=== PATIENT | female | born 1965 | race Hispanic/Latino ===

== ENCOUNTER 2018-03-16 09:55 | Observation (INO) | payer BC, OTHER ==
[2018-03-16 09:56] VITALS: BMI 42.0
--- NOTE | 2018-03-16 10:37 | C.PDOC ---
History Of Present Illness 52 year old female presents to the ED with chest pain tightness and heartburn for 2 days. Chest pain was non radiating, and she denies any history of DVT, or Pulmonary Embolism. She reports relief after taking Nexium. Patient is status post bariatric surgery in September. Time Seen by Provider: 03/16/18 09:56 Chief Complaint (Nursing): Chest Pain History Per: Patient History/Exam Limitations: no limitations Onset/Duration Of Symptoms: Days Current Symptoms Are (Timing): Still Present Past Medical History Reviewed: Historical Data, Nursing Documentation, Vital Signs Vital Signs: Last Vital Signs Temp 98.0 F 03/16/18 09:58 Pulse 74 03/16/18 09:58 Resp 16 03/16/18 09:58 BP 138/85 03/16/18 09:58 Pulse Ox 100 03/16/18 12:25 - Medical History PMH: Asthma, Bronchitis, Hypothyroidism Denies: Depression, Chronic Kidney Disease Surgical History: Tonsillectomy - [facility] Procedures BILAT ENDOS OCC TUBE NEC (09/27/04) INJECT/INFUSE ELECTROLYT (08/13/15) INJECT/INFUSE NEC (08/13/15) LAPAROSCOP LYSIS-PERITONEAL ADHES (09/27/04) NEBULIZER THERAPY (03/09/06) Family History: States: No Known Family Hx - Social History Hx Tobacco Use: No Hx Alcohol Use: Yes Hx Substance Use: No - Immunization History Hx Tetanus Toxoid Vaccination: No Hx Influenza Vaccination: No Hx Pneumococcal Vaccination: No Review Of Systems Except As Marked, All Systems Reviewed And Found Negative. Cardiovascular: Positive for: Chest Pain, Other (and heartburn) Physical Exam - Physical Exam Appears: Non-toxic, No Acute Distress Skin: Normal Color, Warm Eye(s): bilateral: Normal Inspection Oral Mucosa: Moist Neck: Supple Chest: Symmetrical, No Tenderness Cardiovascular: Rhythm Regular, No Murmur Respiratory: Normal Breath Sounds, No Accessory Muscle Use Gastrointestinal/Abdominal: Soft, No Tenderness, No Distention Extremity: Bilateral: Atraumatic, Normal Color And Temperature, Normal ROM Pulses: Left Radial: Normal, Right Radial: Normal Neurological/Psych: Oriented x3, Normal Speech Gait: Steady ED Course And Treatment - Laboratory Results Result Diagrams: 03/16/18 10:29 03/16/18 11:30 ECG: Interpreted By Me ECG Rhythm: Sinus Rhythm (at 64 BPM with normal intervals, normal axis, and no ST/T changes) O2 Sat by Pulse Oximetry: 100 (RA) Pulse Ox Interpretation: Normal - Other Rad Chest XR X-Ray: Read By Radiologist Interpretation: FINDINGS: LUNGS: Clear. PLEURA: No pneumothorax or pleural fluid seen. CARDIOVASCULAR: Normal. OSSEOUS STRUCTURES: No significant abnormalities. VISUALIZED UPPER ABDOMEN: Normal. OTHER FINDINGS: None. IMPRESSION: No active disease. Medical Decision Making Medical Decision Making: IMPRESSION:Chest Pain --EKG --B-TYpe Natriuretic Peptide --CMP Panel --Lipase --Troponin --CBC --D DImer --XR Chest one View --Protonix 40mg 11:[address] Perez Corbin. Patient will be admitted to Telemetry for observation for chest pain. Disposition Discussed With : Perez Corbin Doctor Will See Patient In The: Hospital Counseled Patient/Family Regarding: Studies Performed, Diagnosis - Disposition Disposition: HOSPITALIZED Disposition Time: 12:00 Condition: FAIR - Clinical Impression Clinical Impression: Chest pain - Scribe Statement The provider has reviewed the documentation as recorded by the Scribe (Claudia Costello) Provider Attestation: All medical record entries made by the Scribe were at my direction and personally dictated by me. I have reviewed the chart and agree that the record accurately reflects my personal performance of the history, physical exam, medical decision making, and the department course for this patient. I have also personally directed, reviewed, and agree with the discharge instructions and disposition.
--- NOTE | 2018-03-16 10:39 | RAD ---
PROCEDURE: CHEST RADIOGRAPH, 1 VIEW HISTORY: chest pain COMPARISON: None available. FINDINGS: LUNGS: Clear. PLEURA: No pneumothorax or pleural fluid seen. CARDIOVASCULAR: Normal. OSSEOUS STRUCTURES: No significant abnormalities. VISUALIZED UPPER ABDOMEN: Normal. OTHER FINDINGS: None. IMPRESSION: No active disease.
[2018-03-16 10:41] LABS: BASO % 0.9 % (0.0-2.0); EOS # 0.1 K/uL (0.0-0.7); EOS % 2.6 % (0.0-4.0); HEMOGLOBIN 13.1 g/dL (11.0-16.0); LYMPH # 1.4 K/uL (1.0-4.3); MEAN CELL VOLUME 89.5 fL (81.0-99.0); MEAN CORPUSCULAR HEMOGLOBIN 30.2 pg (27.0-31.0); MEAN CORPUSCULAR HGB CONC 33.7 g/dL (33.0-37.0); MEAN PLATELET VOLUME 9.2 fL (7.2-11.7); MONO # 0.4 K/uL (0.0-0.8); NEUT # 2.9 K/uL (1.8-7.0); NEUT % 59.5 % (50.0-75.0); NRBC % 0.1 % (0.0-2.0); RBC 4.34 Mil/uL (3.80-5.20); RED CELL DISTRIBUTION WIDTH 13.4 % (11.5-14.5); WHITE BLOOD COUNT 4.9 K/uL (4.8-10.8)
[2018-03-16 11:19] LABS: ALB/GLOB RATIO 1.1 (1.0-2.1); ALBUMIN 4.4 g/dL (3.5-5.0); ALT/SGPT < 6 U/L (9-52); AST/SGOT 52 U/L (14-36); BLOOD UREA NITROGEN 19 mg/dL (7-17); CALCIUM 9.3 mg/dl (8.6-10.4); GFR AFRICAN-AMERICAN > 60; GFR NON-AFRICAN AMERICAN > 60; LIPASE 95 U/L (23-300)
[2018-03-16 11:20] LABS: B-TYPE NATRIURETIC PEPTIDE 41.5 pg/mL (0-900)
[2018-03-16] MEDS ORDERED: Alum-Mag Hydrox-Simethicone Susp (30 mL) PO STA (11:58)
[2018-03-16] MEDS ORDERED: Alum-Mag Hydrox-Simethicone Susp (30 mL) ONE (13:10)
[2018-03-16 15:58] VITALS: RESP 20
[2018-03-16 16:58] LABS: HDL CHOLESTEROL 36 mg/dL (30-70)
[2018-03-16 17:12] LABS: LDL CHOLESTEROL 75 mg/dL (0-129)
[2018-03-16 17:18] LABS: CK-MB < 0.22 ng/mL (0.0-3.38)
[2018-03-16 23:00] LABS: CK-MB < 0.22 ng/mL (0.0-3.38)
[2018-03-17] MEDS ORDERED: Sodium Chloride 0.9% 1,000 ML IV SCH (05:15)
[2018-03-17] MEDS ORDERED: Pantoprazole 40 mg Susp UD PO SCH (06:00)
[2018-03-17 08:11] VITALS: BP 102/63; PULSE 57; TEMP 98.1; O2SAT 98
--- NOTE | 2018-03-17 08:46 | CP.PCM.CON ---
History of Present Illness - History of Present Illness History of Present Illness: I was asked to evaluate patient by Dr Corbin. Patient is a 52 year old female with PMH hypercholesterolemia who presents with chest pain. She was driving when she felt discomfort and was told to go to the ER. She has no current chest pain. She has felt intermittent palpitations. Review of Systems - Constitutional Constitutional: absent: As Per HPI, Anorexia, Chills, Daytime Sleepiness, Excessive Sweating, Fatigue, Fever, Frequent Falls, Headache, Increased Appetite , Lethargy, Malaise, Night Sweats, Snoring, Sleep Apnea, Weight Gain, Weight Loss, Weakness, Other - EENT Eyes: absent: As Per HPI, Blind Spots, Blurred Vision, Change in Vision, Decreased Night Vision, Diplopia, Discharge, Dry Eye, Exophthalmos, Floaters, Irritation, Itchy Eyes, Loss of Peripheral Vision, Pain, Photophobia, Requires Corrective Lenses, Sees Flashes, Spots in Vision, Tunnel Vision, Other Visual Disturbances, Loss of Vision, Other Ears: absent: As Per HPI, Decreased Hearing, Ear Discharge, Ear Pain, Tinnitus, Abnormal Hearing, Disequilibrium, Dizziness, Other Nose/Mouth/Throat: absent: As Per HPI, Epistaxis, Nasal Congestion, Nasal Discharge, Nasal Obstruction, Nasal Trauma, Nose Pain, Post Nasal Drip, Sinus Pain, Sinus Pressure, Bleeding Gums, Change in Voice, Dental Pain, Dry Mouth, Dysphagia, Halitosis, Hoarsness, Lip Swelling, Mouth Lesions, Mouth Pain, Odynophagia, Sore Throat, Throat Swelling, Tongue Swelling, Facial Pain, Neck Pain, Neck Mass, Other - Cardiovascular Cardiovascular: Chest Pain at Rest - Respiratory Respiratory: absent: As Per HPI, Cough, Dyspnea, Hemoptysis, Dyspnea on Exertion , Wheezing, Snoring, Stridor, Pain on Inspiration, Chest Congestion, Excessive Mucous Production, Change in Mucous Color, Pain with Coughing, Other - Gastrointestinal Gastrointestinal: absent: As Per HPI, Abdominal Pain, Belching, Bloating, Change in Bowel Habits, Change in Stool Character, Coffee Ground Emesis, Constipation, Cramping, Diarrhea, Dyspepsia, Dysphagia, Early Satiety, Excessive Flatus, Fecal Incontinence, Heartburn, Hematemesis, Hematochezia, Loose Stools, Melena, Nausea, Odynophagia, Temesmus, Vomiting, Other - Genitourinary Genitourinary: absent: As Per HPI, Change in Urinary Stream, Difficulty Urinating, Dysuria, Flank Pain, Hematuria, Pyuria, Nocturia, Urinary Incontinence, Urinary Frequency, Urinary Hesitance, Urinary Urgency, Voiding Freq/Small Amts, Freq UTI, Hx Renal/Bladder Calculi, Hx /Renal Surgery, Bladder Distension, Other - Musculoskeletal Musculoskeletal: absent: As Per HPI, Abnormal Gait, Arthralgias, Atrophy, Back Pain, Deformity, Joint Swelling, Limited Range of Motion, Loss of Height, Muscle Cramps, Muscle Weakness, Myalgias, Neck Pain, Numbness, Radiating Pain into Limb, Stiffness, Tingling, Other - Integumentary Integumentary: absent: As Per HPI, Acne, Alopecia, Bleeding Lesions, Change in Hair, Change in Nails, Change in Pigmentation, Changing Lesions, Dry Skin, Erythema, Furuncle, Hirsutism, Lesions, New Lesions, Non-Healing Lesions, Photosensitivity, Pruritus, Rash, Skin Pain, Skin Ulcer, Sores, Striae, Swelling , Unusual Bruising, Wounds, Jaundice, Other - Neurological Neurological: absent: As Per HPI, Abnormal Gait, Abnormal Hearing, Abnormal Movements, Abnormal Speech, Behavioral Changes, Burning Sensations, Confusion, Convulsions, Disequilibrium, Dizziness, Numbness, Focal Weakness, Frequent Falls , Headaches, Lack of Coordination, Loss of Vision, Memory Loss, Paresthesias, Radicular Pain, Restless Legs, Sensory Deficit, Syncope, Tingling, Tremor, Vertigo, Weakness, Other Visual Disturbances, Other - Psychiatric Psychiatric: absent: As Per HPI, Abnormal Sleep Pattern, Anhedonia, Anxiety, Auditory Hallucinations, Behavioral Changes, Change in Appetite, Change in Libido, Confusion, Depression, Difficulty Concentrating, Hallucinations, Homicidal Ideation, Hopelessness, Irritability, Memory Loss, Mood Swings, Panic Attacks, Paranoia, Suicidal Ideation, Visual Hallucinations, Tactile Hallucinations, Other - Endocrine Endocrine: absent: As Per HPI, Change in Body Appearance, Change in Libido, Cold Intolorance, Deepening of Voice, Excessive Sweating, Fatigue, Flushing, Heat Intolorance, Increase in Ring/Shoe/Hat Size, Palpitations, Polydipsia, Polyphagia, Polyuria, Other - Hematologic/Lymphatic Hematologic: absent: As Per HPI, Easy Bleeding, Easy Bruising, Lymphadenopathy, Other Past Patient History - Infectious Disease Hx of Infectious Diseases: None - Past Social History Smoking Status: Never Smoked - CARDIAC Hx Cardiac Disorders: No - PULMONARY Hx Asthma: Yes Hx Bronchitis: Yes - NEUROLOGICAL Hx Neurological Disorder: No - HEENT Hx HEENT Problems: No - RENAL Hx Chronic Kidney Disease: No - ENDOCRINE/METABOLIC Hx Hypothyroidism: Yes - HEMATOLOGICAL/ONCOLOGICAL Hx Blood Disorders: No - INTEGUMENTARY Hx Dermatological Problems: No - MUSCULOSKELETAL/RHEUMATOLOGICAL Hx Musculoskeletal Disorders: No - GASTROINTESTINAL Hx Gastrointestinal Disorders: No Hx Gastroesophageal Reflux: Yes - GENITOURINARY/GYNECOLOGICAL Hx Genitourinary Disorders: No - PSYCHIATRIC Hx Depression: No Hx Substance Use: No - SURGICAL HISTORY Hx Tonsillectomy: Yes - ANESTHESIA Hx Anesthesia: Yes Hx Anesthesia Reactions: No Meds Allergies/Adverse Reactions: Allergies Allergy/AdvReac Type Severity Reaction Status Date / Time No Known Allergies Allergy Verified 03/16/18 10:12 - Medications Medications: Current Medications Al Hydrox/Mg Hydrox/Simethicone (Maalox Plus 30 Ml) 30 ml PO TID [facility] Aspirin (Ecotrin) 81 mg PO DAILY [facility] Heparin Sodium (Porcine) (Heparin) 5,000 units SC Q8 [facility] Last Admin: 03/17/18 06:26 Dose: Not Given Sodium Chloride (Sodium Chloride 0.9%) 1,000 mls @ 100 mls/hr IV .Q10H [facility] Last Admin: 03/17/18 05:19 Dose: 100 mls/hr Pantoprazole Sodium (Protonix Susp) 40 mg PO 0600 [facility] Last Admin: 03/17/18 05:39 Dose: 40 mg Rosuvastatin Calcium (Crestor) 10 mg PO HS [facility] Last Admin: 03/16/18 22:07 Dose: Not Given Physical Exam - Constitutional Appears: Non-toxic - Head Exam Head Exam: NORMAL INSPECTION - Eye Exam Eye Exam: Normal appearance - ENT Exam ENT Exam: Mucous Membranes Moist - Neck Exam Neck exam: Positive for: Full Rom - Respiratory Exam Respiratory Exam: NORMAL BREATHING PATTERN - Cardiovascular Exam Cardiovascular Exam: REGULAR RHYTHM - GI/Abdominal Exam GI & Abdominal Exam: Normal Bowel Sounds - Rectal Exam Rectal Exam: Deferred - Extremities Exam Extremities exam: Positive for: normal inspection - Back Exam Back exam: NORMAL INSPECTION - Neurological Exam Neurological exam: Alert, Oriented x3 - Psychiatric Exam Psychiatric exam: Normal Affect - Skin Skin Exam: Normal Color Results - Vital Signs Recent Vital Signs: Last Vital Signs Temp 98.1 F 03/17/18 08:00 Pulse 57 L 03/17/18 08:00 Resp 20 03/17/18 08:00 BP 102/63 03/17/18 08:00 Pulse Ox 98 03/17/18 08:00 - Labs Result Diagrams: 03/16/18 10:29 03/16/18 11:30 Labs: Laboratory Results - last 24 hr 03/16/18 03/16/18 03/16/18 10:29 10:29 10:29 WBC 4.9 RBC 4.34 Hgb 13.1 Hct 38.8 MCV 89.5 MCH 30.2 MCHC 33.7 RDW 13.4 Plt Count 206 MPV 9.2 Neut % (Auto) 59.5 Lymph % (Auto) 28.0 Page % (Auto) 9.0 Eos % (Auto) 2.6 Baso % (Auto) 0.9 Neut # (Auto) 2.9 Lymph # (Auto) 1.4 Page # (Auto) 0.4 Eos # (Auto) 0.1 Baso # (Auto) 0.0 D-Dimer, Quantitative < 200 Sodium 142 Potassium 6.4 H* Chloride 106 Carbon Dioxide 26 Anion Gap 17 BUN 19 H Creatinine 0.6 L Est GFR ( Amer) > 60 Est GFR (Non-Af Amer) > 60 Random Glucose 74 Calcium 9.3 Total Bilirubin 1.6 H AST 52 H ALT < 6 L Alkaline Phosphatase 70 Total Creatine Kinase CK-MB (Mass) Troponin I 0.0160 NT-Pro-B Natriuret Pep 41.5 Total Protein 8.5 H Albumin 4.4 Globulin 4.1 H Albumin/Globulin Ratio 1.1 Triglycerides Cholesterol LDL Cholesterol Direct HDL Cholesterol Lipase 95 03/16/18 03/16/18 03/16/18 11:30 16:35 22:32 WBC RBC Hgb Hct MCV MCH MCHC RDW Plt Count MPV Neut % (Auto) Lymph % (Auto) Page % (Auto) Eos % (Auto) Baso % (Auto) Neut # (Auto) Lymph # (Auto) Page # (Auto) Eos # (Auto) Baso # (Auto) D-Dimer, Quantitative Sodium Potassium 4.0 Chloride Carbon Dioxide Anion Gap BUN Creatinine Est GFR ( Amer) Est GFR (Non-Af Amer) Random Glucose Calcium Total Bilirubin AST ALT Alkaline Phosphatase Total Creatine Kinase 52 45 CK-MB (Mass) < 0.22 < 0.22 Troponin I < 0.0120 < 0.0120 NT-Pro-B Natriuret Pep Total Protein Albumin Globulin Albumin/Globulin Ratio Triglycerides 72 Cholesterol 131 LDL Cholesterol Direct 75 HDL Cholesterol 36 Lipase - EKG Data EKG Interpreted by: Myself EKG shows normal: Sinus rhythm Assessment & Plan (1) Chest pain Assessment and Plan: patient has ruled out for myocardial infarction. Her symptoms seem atypical for CAD. Recommend d/c home. will schedule outpatient holter monitor Status: Acute
--- NOTE | 2018-03-17 09:16 | CP.PCM.HP ---
History of Present Illness - History of Present Illness History of Present Illness: CC: chest pain HPI: Patient is a 52 year old female with PMH of gastric by pass surgery in 2015, hypercholesterolemia who presents with chest pain.dull, substernal, not associated with diaphoresis. She was driving when she felt discomfort and was told to go to the ER. She has no current chest pain. She has felt intermittent palpitations. when pt had gastric bypass surgery she developed hypertension, she underwent full cardiac workup with and no cardiac artery disease was found. Present on Admission - Present on Admission Any Indicators Present on Admission: Yes Review of Systems - Review of Systems Systems not reviewed;Unavailable: Acuity of Condition - Constitutional Constitutional: Fatigue, Lethargy, Weakness - EENT Eyes: absent: As Per HPI, Blind Spots, Blurred Vision, Change in Vision, Decreased Night Vision, Diplopia, Discharge, Dry Eye, Exophthalmos, Floaters, Irritation, Itchy Eyes, Loss of Peripheral Vision, Pain, Photophobia, Requires Corrective Lenses, Sees Flashes, Spots in Vision, Tunnel Vision, Other Visual Disturbances, Loss of Vision, Other Nose/Mouth/Throat: absent: As Per HPI, Epistaxis, Nasal Congestion, Nasal Discharge, Nasal Obstruction, Nasal Trauma, Nose Pain, Post Nasal Drip, Sinus Pain, Sinus Pressure, Bleeding Gums, Change in Voice, Dental Pain, Dry Mouth, Dysphagia, Halitosis, Hoarsness, Lip Swelling, Mouth Lesions, Mouth Pain, Odynophagia, Sore Throat, Throat Swelling, Tongue Swelling, Facial Pain, Neck Pain, Neck Mass, Other - Breasts Breasts: absent: As Per HPI, Change in Shape, Mass, Pain, Nipple Discharge, Nipple Inversion, Skin Changes, Swelling, Other - Cardiovascular Cardiovascular: Chest Pain - Respiratory Respiratory: absent: As Per HPI, Cough, Dyspnea, Hemoptysis, Dyspnea on Exertion , Wheezing, Snoring, Stridor, Pain on Inspiration, Chest Congestion, Excessive Mucous Production, Change in Mucous Color, Pain with Coughing, Other - Gastrointestinal Gastrointestinal: Abdominal Pain, Heartburn, Nausea - Genitourinary Genitourinary: absent: As Per HPI, Change in Urinary Stream, Difficulty Urinating, Dysuria, Flank Pain, Hematuria, Pyuria, Nocturia, Urinary Incontinence, Urinary Frequency, Urinary Hesitance, Urinary Urgency, Voiding Freq/Small Amts, Freq UTI, Hx Renal/Bladder Calculi, Hx /Renal Surgery, Bladder Distension, Other Past Patient History - Infectious Disease Hx of Infectious Diseases: None - Past Social History Smoking Status: Never Smoked - CARDIAC Hx Cardiac Disorders: No - PULMONARY Hx Asthma: Yes Hx Bronchitis: Yes - NEUROLOGICAL Hx Neurological Disorder: No - HEENT Hx HEENT Problems: No - RENAL Hx Chronic Kidney Disease: No - ENDOCRINE/METABOLIC Hx Hypothyroidism: Yes - HEMATOLOGICAL/ONCOLOGICAL Hx Blood Disorders: No - INTEGUMENTARY Hx Dermatological Problems: No - MUSCULOSKELETAL/RHEUMATOLOGICAL Hx Musculoskeletal Disorders: No - GASTROINTESTINAL Hx Gastrointestinal Disorders: No Hx Gastroesophageal Reflux: Yes - GENITOURINARY/GYNECOLOGICAL Hx Genitourinary Disorders: No - PSYCHIATRIC Hx Depression: No Hx Substance Use: No - SURGICAL HISTORY Hx Tonsillectomy: Yes - ANESTHESIA Hx Anesthesia: Yes Hx Anesthesia Reactions: No Meds Allergies/Adverse Reactions: Allergies Allergy/AdvReac Type Severity Reaction Status Date / Time No Known Allergies Allergy Verified 03/16/18 10:12 Physical Exam - Constitutional Appears: No Acute Distress - Head Exam Head Exam: ATRAUMATIC, NORMAL INSPECTION, NORMOCEPHALIC - Eye Exam Eye Exam: EOMI, Normal appearance, PERRL Pupil Exam: NORMAL ACCOMODATION, PERRL - ENT Exam ENT Exam: Mucous Membranes Moist, Normal Exam - Respiratory Exam Respiratory Exam: Clear to Auscultation Bilateral, NORMAL BREATHING PATTERN - Cardiovascular Exam Cardiovascular Exam: REGULAR RHYTHM - GI/Abdominal Exam GI & Abdominal Exam: Normal Bowel Sounds, Soft. absent: Tenderness - Rectal Exam Rectal Exam: Deferred - Neurological Exam Neurological exam: Alert, CN II-XII Intact, Normal Gait, Oriented x3, Reflexes Normal - Psychiatric Exam Psychiatric exam: Normal Affect, Normal Mood Results - Vital Signs Recent Vital Signs: Last Vital Signs Temp 98.1 F 03/17/18 08:00 Pulse 57 L 03/17/18 08:00 Resp 20 03/17/18 08:00 BP 102/63 03/17/18 08:00 Pulse Ox 98 03/17/18 08:00 - Labs Result Diagrams: 03/16/18 10:29 03/16/18 11:30 Labs: Laboratory Results - last 24 hr 03/16/18 03/16/18 03/16/18 10:29 10:29 10:29 WBC 4.9 RBC 4.34 Hgb 13.1 Hct 38.8 MCV 89.5 MCH 30.2 MCHC 33.7 RDW 13.4 Plt Count 206 MPV 9.2 Neut % (Auto) 59.5 Lymph % (Auto) 28.0 Otero % (Auto) 9.0 Eos % (Auto) 2.6 Baso % (Auto) 0.9 Neut # (Auto) 2.9 Lymph # (Auto) 1.4 [place]o # (Auto) 0.4 Eos # (Auto) 0.1 Baso # (Auto) 0.0 D-Dimer, Quantitative < 200 Sodium 142 Potassium 6.4 H* Chloride 106 Carbon Dioxide 26 Anion Gap 17 BUN 19 H Creatinine 0.6 L Est GFR ( Amer) > 60 Est GFR (Non-Af Amer) > 60 Random Glucose 74 Calcium 9.3 Total Bilirubin 1.6 H AST 52 H ALT < 6 L Alkaline Phosphatase 70 Total Creatine Kinase CK-MB (Mass) Troponin I 0.0160 NT-Pro-B Natriuret Pep 41.5 Total Protein 8.5 H Albumin 4.4 Globulin 4.1 H Albumin/Globulin Ratio 1.1 Triglycerides Cholesterol LDL Cholesterol Direct HDL Cholesterol Lipase 95 03/16/18 03/16/18 03/16/18 11:30 16:35 22:32 WBC RBC Hgb Hct MCV MCH MCHC RDW Plt Count MPV Neut % (Auto) Lymph % (Auto) O[place]o % (Auto) Eos % (Auto) Baso % (Auto) Neut # (Auto) Lymph # (Auto) [place] # (Auto) Eos # (Auto) Baso # (Auto) D-Dimer, Quantitative Sodium Potassium 4.0 Chloride Carbon Dioxide Anion Gap BUN Creatinine Est GFR ( Amer) Est GFR (Non-Af Amer) Random Glucose Calcium Total Bilirubin AST ALT Alkaline Phosphatase Total Creatine Kinase 52 45 CK-MB (Mass) < 0.22 < 0.22 Troponin I < 0.0120 < 0.0120 NT-Pro-B Natriuret Pep Total Protein Albumin Globulin Albumin/Globulin Ratio Triglycerides 72 Cholesterol 131 LDL Cholesterol Direct 75 HDL Cholesterol 36 Lipase Assessment & Plan (1) S/P gastric bypass Status: Acute (2) Chest pain Assessment and Plan: rule out [place] Status: Acute
--- NOTE | 2018-03-17 09:49 | CP.PCM.PN ---
Objective - Vital Signs/Intake and Output Vital Signs (last 24 hours): Temp Pulse Resp BP Pulse Ox 98.1 F 57 L 20 102/63 98 03/17/18 08:00 03/17/18 08:00 03/17/18 08:00 03/17/18 08:00 03/17/18 08:00 Intake and Output: 03/17/18 03/17/18 06:59 18:59 Intake Total 160 Balance 160 - Medications Medications: Current Medications Al Hydrox/Mg Hydrox/Simethicone (Maalox Plus 30 Ml) 30 ml PO TID [facility] Last Admin: 03/17/18 09:24 Dose: Not Given Aspirin (Ecotrin) 81 mg PO DAILY [facility] Last Admin: 03/17/18 09:24 Dose: Not Given Heparin Sodium (Porcine) (Heparin) 5,000 units SC Q8 [facility] Last Admin: 03/17/18 06:26 Dose: Not Given Sodium Chloride (Sodium Chloride 0.9%) 1,000 mls @ 100 mls/hr IV .Q10H [facility] Last Admin: 03/17/18 05:19 Dose: 100 mls/hr Pantoprazole Sodium (Protonix Susp) 40 mg PO 0600 [facility] Last Admin: 03/17/18 05:39 Dose: 40 mg Rosuvastatin Calcium (Crestor) 10 mg PO HS [facility] Last Admin: 03/16/18 22:07 Dose: Not Given - Labs Labs: 03/16/18 10:29 03/16/18 11:30 Assessment and Plan (1) S/P gastric bypass Status: Acute (2) Chest pain Status: Acute
[2018-03-17] MEDS ORDERED: Alum-Mag Hydrox-Simethicone Susp (30 mL) PO SCH (10:00)
--- NOTE | 2018-03-17 11:55 | CP.PCM.PN ---
Subjective - Date & Time of Evaluation Date of Evaluation: 03/17/18 Time of Evaluation: 11:54 - Subjective Subjective: PT SEEN BY DR. LOERA THIS MORNING AND CLEARED FOR D/C HOME TODAY. OK PER DR. LUONG TO D/C PT HOME. NO NEW RX GIVEN. PT TO F/U WITH DR. LOERA IN THE OFFICE WITHIN 1-2 WEEKS AND WILL HAVE FURTHER OUTPATIENT TESTING DONE. PT VERBALIZES UNDERSTANDING OF D/C PLAN. NO FURTHER ORDERS. Objective - Vital Signs/Intake and Output Vital Signs (last 24 hours): Temp Pulse Resp BP Pulse Ox 98.1 F 57 L 20 102/63 98 03/17/18 08:00 03/17/18 08:00 03/17/18 08:00 03/17/18 08:00 03/17/18 08:00 Intake and Output: 03/17/18 03/17/18 06:59 18:59 Intake Total 160 Balance 160 - Medications Medications: Current Medications Al Hydrox/Mg Hydrox/Simethicone (Maalox Plus 30 Ml) 30 ml PO TID [facility] Last Admin: 03/17/18 09:24 Dose: Not Given Aspirin (Ecotrin) 81 mg PO DAILY [facility] Last Admin: 03/17/18 09:24 Dose: Not Given Heparin Sodium (Porcine) (Heparin) 5,000 units SC Q8 [facility] Last Admin: 03/17/18 06:26 Dose: Not Given Sodium Chloride (Sodium Chloride 0.9%) 1,000 mls @ 100 mls/hr IV .Q10H [facility] Last Admin: 03/17/18 05:19 Dose: 100 mls/hr Pantoprazole Sodium (Protonix Susp) 40 mg PO 0600 [facility] Last Admin: 03/17/18 05:39 Dose: 40 mg Rosuvastatin Calcium (Crestor) 10 mg PO HS [facility] Last Admin: 03/16/18 22:07 Dose: Not Given - Labs Labs: 03/16/18 10:29 03/16/18 11:30
--- NOTE | 2018-03-17 19:13 | CARD ---
APPROVED REPORT EXAM: Two-dimensional and M-mode echocardiogram with Doppler and color Doppler. Other Information Quality : Good[employer] : INDICATION Chest Pain RISK FACTORS Diabetes 2D DIMENSIONS IVSd1.2 (0.7-1.1cm)LVDd3.6 (3.9-5.9cm) PWd1.1 (0.7-1.1cm)LVDs2.6 (2.5-4.0cm) FS (%) 27.4 %LVEF (%)54.2 (>50%) M-Mode DIMENSIONS Left Atrium (MM)4.07 (2.5-4.0cm)Aortic Root2.61 (2.2-3.7cm) Aortic Cusp Exc.1.34 (1.5-2.0cm) Mitral Valve MV E Muqpbzhf65.8cm/sMV A Uihplnzi80.9cm/sE/A ratio1.5 TDI E/Lateral E'0.0E/Medial E'0.0 Tricuspid Valve TR Peak [id number]/sTR Peak Gr.[id number] LEFT VENTRICLE The left ventricle is normal size. There is normal left ventricular wall thickness. The left ventricular function is normal. The left ventricular ejection fraction is within the normal range. There is normal LV segmental wall motion. The left ventricular diastolic function is normal. RIGHT VENTRICLE The right ventricle is normal size. There is normal right ventricular wall thickness. ATRIA The left atrium is borderline dilated. The right atrium size is normal. AORTIC VALVE The aortic valve is normal in structure. MITRAL VALVE The mitral valve is normal in structure. TRICUSPID VALVE There is trace tricuspid regurgitation. <Conclusion> Normal LV systolic function. Borderline dilated LA. Trace TR.
--- NOTE | 2018-03-17 20:31 | CARD ---
APPROVED REPORT EKG Measurement Heart [id number] [place] [id number] <Conclusion> Normal sinus rhythm Normal ECG
--- NOTE | 2018-03-19 00:26 | CP.PCM.DIS ---
Provider - Provider Date of Admission: 03/16/18 11:59 Attending physician: Perez Corbin MD Time Spent in preparation of Discharge (in minutes): 25 Diagnosis - Discharge Diagnosis (1) S/P gastric bypass Status: Acute (2) Chest pain Status: Acute Hospital Course - Lab Results Lab Results: Most Recent Lab Values WBC 4.9 K/uL (4.8-10.8) 03/16/18 10:29 RBC 4.34 Mil/uL (3.80-5.20) 03/16/18 10:29 Hgb 13.1 g/dL (11.0-16.0) 03/16/18 10: Hct 38.8 % (34.0-47.0) 03/16/18 10: MCV 89.5 fL (81.0-99.0) 03/16/18 10: MCH 30.2 pg (27.0-31.0) 03/16/18 10: MCHC 33.7 g/dL (33.0-37.0) 03/16/18 10:29 RDW 13.4 % (11.5-14.5) 03/16/18 10: Plt Count 206 K/uL (130-400) 03/16/18 10: MPV 9.2 fL (7.2-11.7) 03/16/18 10: Neut % (Auto) 59.5 % (50.0-75.0) 03/16/18 10: Lymph % (Auto) 28.0 % (20.0-40.0) 03/16/18 10:29 [place] % (Auto) 9.0 % (0.0-10.0) 03/16/18 10:29 Eos % (Auto) 2.6 % (0.0-4.0) 03/16/18 10:29 Baso % (Auto) 0.9 % (0.0-2.0) 03/16/18 10:29 Neut # (Auto) 2.9 K/uL (1.8-7.0) 03/16/18 10: Lymph # (Auto) 1.4 K/uL (1.0-4.3) 03/16/18 10:29 [place] # (Auto) 0.4 K/uL (0.0-0.8) 03/16/18 10:29 Eos # (Auto) 0.1 K/uL (0.0-0.7) 03/16/18 10:29 Baso # (Auto) 0.0 K/uL (0.0-0.2) 03/16/18 10:29 D-Dimer, Quantitative < 200 ng/mlDDU (0-243) 03/16/18 10:29 Sodium 142 mmol/L (132-148) 03/16/18 10:29 Potassium 4.0 mmol/L (3.6-5.2) 03/16/18 11:30 Chloride 106 mmol/L (98-107) 03/16/18 10:29 Carbon Dioxide 26 mmol/L (22-30) 03/16/18 10:29 Anion Gap 17 (10-20) 03/16/18 10:29 BUN 19 mg/dL (7-17) H 03/16/18 10:29 Creatinine 0.6 mg/dL (0.7-1.2) L 03/16/18 10:29 Est GFR ( Amer) > 60 03/16/18 10:29 Est GFR (Non-Af Amer) > 60 03/16/18 10:29 Random Glucose 74 mg/dL (65-105) 03/16/18 10:29 Calcium 9.3 mg/dl (8.6-10.4) 03/16/18 10:29 Total Bilirubin 1.6 mg/dL (0.2-1.3) H 03/16/18 10:29 AST 52 U/L (14-36) H 03/16/18 10:29 ALT < 6 U/L (9-52) L 03/16/18 10:29 Alkaline Phosphatase 70 U/L (38-126) 03/16/18 10:29 Total Creatine Kinase 45 U/L (30-135) 03/16/18 22:32 CK-MB (Mass) < 0.22 ng/mL (0.0-3.38) 03/16/18 22:32 Troponin I < 0.0120 ng/mL (0.00-0.120) 03/16/18 22:32 NT-Pro-B Natriuret Pep 41.5 pg/mL (0-900) 03/16/18 10:29 Total Protein 8.5 g/dL (6.3-8.3) H 03/16/18 10:29 Albumin 4.4 g/dL (3.5-5.0) 03/16/18 10:29 Globulin 4.1 gm/dL (2.2-3.9) H 03/16/18 10:29 Albumin/Globulin Ratio 1.1 (1.0-2.1) 03/16/18 10:29 Triglycerides 72 mg/dL (0-149) 03/16/18 16:35 Cholesterol 131 mg/dL (0-199) 03/16/18 16:35 LDL Cholesterol Direct 75 mg/dL (0-129) 03/16/18 16:35 HDL Cholesterol 36 mg/dL (30-70) 03/16/18 16:35 Lipase 95 U/L (23-300) 03/16/18 10:29 - Hospital Course Hospital Course: PT SEEN AND EXAMINED, IS CLEARED FOR D/C HOME TODAY. NO NEW RX GIVEN. PT TO F/ U WITH DR. LOERA IN THE OFFICE WITHIN 1-2 WEEKS AND WILL HAVE FURTHER OUTPATIENT TESTING DONE. PT VERBALIZES UNDERSTANDING OF D/C PLAN. NO FURTHER ORDERS. Discharge Exam - Head Exam Head Exam: ATRAUMATIC, NORMAL INSPECTION, NORMOCEPHALIC - Eye Exam Eye Exam: EOMI, Normal appearance, PERRL Pupil Exam: NORMAL ACCOMODATION, PERRL - ENT Exam ENT Exam: Mucous Membranes Moist - Respiratory Exam Respiratory Exam: Clear to PA & Lateral, NORMAL BREATHING PATTERN - Cardiovascular Exam Cardiovascular Exam: REGULAR RHYTHM, +S1, +S2 - GI/Abdominal Exam GI & Abdominal Exam: Normal Bowel Sounds, Unremarkable - Rectal Exam Rectal Exam: Deferred Discharge Plan - Follow Up Plan Condition: FAIR Disposition: HOME/ ROUTINE Instructions: Headache, Adult, Chest Pain Additional Instructions: follow up with Dr. Corbin and your district representative in the office in 1 week. continue same home medications as usual. no new prescriptions. for further questions, contact Dr. Corbin or Dr. Loera. Referrals: Perez Corbin MD [Staff Provider] - Doreen Loera MD [Staff Provider] -
== END 2018-03-17 16:00 | disposition home or self-care (01) ==
LOC: C.ER 09:55 → C.9E 11:59 → C.6T 13:13
PROVIDERS: ADMIT Internal Medicine; ATTEND Internal Medicine
DX: R07.9 Chest pain, unspecified (principal); Z98.84 Bariatric surgery status; J45.909 Unspecified asthma, uncomplicated; E03.9 Hypothyroidism, unspecified; E78.00 Pure hypercholesterolemia, unspecified; I10 Essential (primary) hypertension; K21.9 Gastro-esophageal reflux disease without esophagitis; R51 Headache
CPT/HCPCS: 71045; 80053; 80061; 83690; 83880; 84132; 84484; 85025; 85378; 93005; 93306; 96374; 99285; C9113; G0378; J7040